=== PATIENT | male | born 1980 | race Caucasian/White ===

== ENCOUNTER 2019-08-31 10:53 | Emergency (ER) | payer SELFPAY ==
[2019-08-31 11:02] VITALS: BP 145/85; PULSE 92; RESP 24; TEMP 36.7; O2SAT 97
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
[2019-08-31] MEDS: KETOROLAC 60 MG/2 ML VIAL 30 MG IM (12:26)
[2019-08-31 12:33] VITALS: BP 120/70; PULSE 80; RESP 16; O2SAT 99
== END 2019-08-31 12:38 | disposition home or self-care (01) ==
PROVIDERS: Emergency Provider Nurse Practitioner
DX: S13.4XXA Sprain of ligaments of cervical spine, initial encounter (principal); V87.7XXA Person injured in collision between other specified motor vehicles (traffic), initial encounter
CPT/HCPCS: 70450; 72125; 96372; 99284; J1885